=== PATIENT | female | born 1960 | race Caucasian/White ===

== ENCOUNTER 2016-02-25 00:30 | Emergency (ER) | payer OTHER ==
[2016-02-25] MEDS ORDERED: CYCLOBENZAPRINE 10 MG TAB ONE (02:52)
[2016-02-25] MEDS ORDERED: DILAUDID 1 MG/ML AMP ONE (02:53)
[2016-02-25] MEDS ORDERED: ONDANSETRON ODT 4 MG TAB ONE (02:53)
== END 2016-02-25 03:58 | disposition home or self-care (01) ==
LOC: ER 00:30
CPT/HCPCS: 96372